=== PATIENT | female | born 1980 | race Caucasian/White ===

== ENCOUNTER 2020-02-25 04:58 | Emergency (ER) | payer OTHER ==
[~2020-02-25] VITALS: Ht 157.4 cm; Wt 56.7 kg
[2020-02-25] MEDS ORDERED: AUGMENTIN 875875 MG PO (05:35)
== END 2020-02-25 05:55 | disposition home or self-care (01) ==
LOC: ED 04:58
DX: L03.012 Cellulitis of left finger (principal); F17.200 Nicotine dependence, unspecified, uncomplicated